=== PATIENT | male | born 1955 | race Two or more races ===

== ENCOUNTER 2019-05-09 12:20 | Emergency (ER) | payer BC, OTHER ==
--- NOTE | 2019-05-09 13:24 | EDM.PDOC ---
ED HPI GENERAL MEDICAL PROBLEM - General Chief Complaint: Respiratory Problem Stated Complaint: FEVER, COUGH Time Seen by Provider: 05/09/19 12:20 Source of Information: Reports: Patient History Limitations: Reports: No Limitations - History of Present Illness INITIAL COMMENTS - FREE TEXT/NARRATIVE: brought in by daughter does not speak divehi states he has had cough and low grade fever for 2 days cough is productive of yellow phlegm, no chest pain , no sob pt is a smoker Onset: Gradual Onset Date: 05/07/19 Duration: Day(s): (2) Location: Reports: Chest Quality: Reports: Burning Severity: Moderate Worsens with: Reports: Breathing Context: Reports: Sick Contact Associated Symptoms: Reports: Cough, Fever/Chills, Loss of Appetite, Malaise genralized body aches Pain Score (Numeric/FACES): 1 - Related Data Allergies Allergy/AdvReac Type Severity Reaction Status Date / Time No Known Allergies Allergy Verified 05/09/19 12:21 Home Meds: Home Meds Lisinopril/Hydrochlorothiazide [Zestoretic 10-12.5 mg Tablet] 1 ea PO DAILY [History] atorvaSTATin [Lipitor] 20 mg PO DAILY 03/29/15 [History] Amoxicillin/Potassium Clav [Augmentin 875-125 Tablet] 1 each PO BID #20 tablet 05/09/19 [Rx] Benzonatate [Tessalon Perle] 100 mg PO TID #30 capsule 05/09/19 [Rx] guaiFENesin [Mucinex] 600 mg PO BID #20 tab.er.12h 05/09/19 [Rx] sitaGLIPtin Phos/Metformin HCl [Janumet 50-1,000 MG] 1 tab PO BID 05/09/19 [ History] Past Medical History HEENT History: Reports: Other (See Below) Other HEENT History: BILATERAL [place] Cardiovascular History: Reports: High Cholesterol, Hypertension Gastrointestinal History: Reports: GERD Endocrine/Metabolic History: Reports: Diabetes, Type II Social & Family History - Family History Family Medical History: Noncontributory - Tobacco Use Smoking Status *Q: Current Every Day Smoker Years of Tobacco use: 1 Packs/Tins Daily: 0.2 Second Hand Smoke Exposure: Yes - Caffeine Use Caffeine Use: Reports: Coffee - Alcohol Use Number of Drinks Per Day: 4 - Recreational Drug Use Recreational Drug Use: No ED ROS GENERAL - Review of Systems Review Of Systems: Comprehensive ROS is negative, except as noted in HPI. Constitutional: Reports: Fever, Chills, Malaise, Weakness HEENT: Reports: Rhinitis Respiratory: Reports: Cough, Sputum. Denies: Shortness of Breath, Wheezing, Hemoptysis Cardiovascular: Denies: Chest Pain Endocrine: Reports: No Symptoms GI/Abdominal: Reports: No Symptoms Musculoskeletal: Reports: No Symptoms Skin: Reports: No Symptoms Neurological: Reports: No Symptoms Immunologic: Reports: No Symptoms ED EXAM, GENERAL - Physical Exam Exam: See Below Exam Limited By: No Limitations General Appearance: Alert, WD/WN, No Apparent Distress Eye Exam: Bilateral Eye: EOMI Ears: Normal External Exam Ear Exam: Bilateral Ear: TM normal Nose: Normal Inspection Throat/Mouth: Normal Oropharynx Head: Atraumatic Neck: Supple, Non-Tender Respiratory/Chest: Lungs Clear, Normal Breath Sounds Extremities: Normal Inspection Neurological: Alert, Oriented Psychiatric: Normal Affect Course - Vital Signs Last Recorded V/S: Last Vital Signs Temp 37.7 C 05/09/19 14:00 Pulse 99 05/09/19 14:00 Resp 17 05/09/19 14:00 BP 140/82 05/09/19 14:00 Pulse Ox 94 L 05/09/19 14:00 - Orders/Labs/Meds Orders: Active Orders 24 hr Category Date Time Status CORONAVIRUS COVID-19, JEN Routine Lab 05/09/19 13:01 Received Meds: Medications Discontinued Medications Generic Name Dose Route Start Last Admin Trade Name Freq PRN Reason Stop Dose Admin Ondansetron HCl 4 mg 05/09/19 13:43 05/09/19 13:48 Zofran Odt PO 05/09/19 13:44 4 mg ONETIME ONE Administration - Re-Assessments/Exams Free Text/Narrative Re-Assessment/Exam: 05/09/19 19:23 negative screen for influenza noted screen for COVID ordered since he has fever , cough and has high risk for infection Departure - Departure Time of Disposition: 14:05 Disposition: Home, Self-Care 01 Condition: Good Clinical Impression: Acute bronchitis, URI (upper respiratory infection) - Discharge Information *PRESCRIPTION DRUG MONITORING PROGRAM REVIEWED*: Not Applicable *COPY OF PRESCRIPTION DRUG MONITORING REPORT IN PATIENT JACQUE: Not Applicable Prescriptions: Amoxicillin/Potassium Clav [Augmentin 875-125 Tablet] 1 each PO BID #20 tablet Benzonatate [Tessalon Perle] 100 mg PO TID #30 capsule guaiFENesin [Mucinex] 600 mg PO BID #20 tab.er.12h Instructions: Acute Bronchitis, Adult, [id number], Upper Respiratory Infection, Adult, [id number] Referrals: PCP,None [Primary Care Provider] - Forms: ED Department Discharge Additional Instructions: Increase fluid intake Take tylenol 500m 2 tabs 3times a day as needed for fever and pains Make appt to see your doctor if symptoms do not improve as expected Sepsis Event Note - Evaluation Sepsis Screening Result: Possible Sepsis Risk - Focused Exam Vital Signs: Vital Signs Temp Pulse Resp BP Pulse Ox 05/09/19 14:00 37.7 C 99 17 140/82 94 L 05/09/19 12:27 37.7 C 107 H 17 147/79 H 94 L Date Exam was Performed: 05/09/19 Time Exam was Performed: 19:18 - My Orders Last 24 Hours: My Active Orders 05/09/19 13:01 CORONAVIRUS COVID-19, JEN Routine - Assessment/Plan Last 24 Hours: My Active Orders 05/09/19 13:01 CORONAVIRUS COVID-19, JEN Routine
[2019-05-09] MEDS: Ondansetron 4 MG Tab.DIS PO ONE (13:48)
[2019-05-09 14:18] VITALS: BP 140/82; PULSE 99
== END 2019-05-09 14:05 | disposition home or self-care (01) ==
LOC: FB.ED 12:20
DX: J20.9 Acute bronchitis, unspecified (principal); J06.9 Acute upper respiratory infection, unspecified; F17.210 Nicotine dependence, cigarettes, uncomplicated; E11.9 Type 2 diabetes mellitus without complications; E78.00 Pure hypercholesterolemia, unspecified; I10 Essential (primary) hypertension; K21.9 Gastro-esophageal reflux disease without esophagitis; Z79.899 Other long term (current) drug therapy
CPT/HCPCS: 87635; 87804; 99283; A9270; U0002

== ENCOUNTER 2020-10-14 13:40 | Emergency (ER) | payer OTHER, BC ==
--- NOTE | 2020-10-14 14:05 | EDM.PDOC ---
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 There was no loss of consciousness. He did feel dazed. There was some bleeding from the occiput. He does have pain in his head that he reports is a "funny feeling" and also some pain that goes down into his posterior neck. He rates that pain as a 7-8/10. He has no vision problems. There is no arm or leg weakness. No nausea or vomiting. This occurred at approximately 1:40 PM today. He has no back pain. He has no arm or leg weakness or numbness. Since to the emergency department via private vehicle's family members. He speaks little Greek and the family members serve as program development manager. 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 There are no other associated signs or symptoms. There are no other modifying factors. Onset: Today (1:40 PM) Duration: Constant Location: Reports: Head, Neck Quality: Reports: Other ("Funny feeling") Severity: Moderate Improves with: Reports: Rest Worsens with: Reports: Other (Palpation), Movement Context: Reports: Trauma Associated Symptoms: Reports: No Other Symptoms Treatments PRENATAL TEACHER: Reports: Other (see below) (Nothing.) Headache Pain Score (Numeric/FACES): 4 - Related Data Allergies Allergy/AdvReac Type Severity Reaction Status Date / Time No Known Allergies Allergy Verified 10/14/20 14:04 Home Meds: Home Meds Lisinopril/Hydrochlorothiazide [Zestoretic 10-12.5 mg Tablet] 1 ea PO DAILY 03/29/15 [History] atorvaSTATin [Lipitor] 20 mg PO DAILY 03/29/15 [History] Amoxicillin/Potassium Clav [Augmentin 875-125 Tablet] 1 each PO BID #20 tablet 05/09/19 [Rx] Benzonatate [Tessalon Perle] 100 mg PO TID #30 capsule 05/09/19 [Rx] guaiFENesin [Mucinex] 600 mg PO BID #20 tab.er.12h 05/09/19 [Rx] sitaGLIPtin Phos/Metformin HCl [Janumet 50-1,000 MG] 1 tab PO BID 05/09/19 [History] Past Medical History HEENT History: Reports: Other (See Below) Other HEENT History: BILATERAL chalazion Cardiovascular History: Reports: High Cholesterol, Hypertension Gastrointestinal History: Reports: GERD Endocrine/Metabolic History: Reports: Diabetes, Type II - Past Surgical History HEENT Surgical History: Reports: Oral Surgery (Dental extractions.) Social & Family History - Tobacco Use Tobacco Use Status *Q: Current Every Day Tobacco User - Caffeine Use Caffeine Use: Reports: Coffee - Alcohol Use Alcohol Use History: Yes Alcohol Use Frequency: Weekly (Usually only on weekends.) - Living Situation & Occupation Occupation: Employed ED ROS GENERAL - Review of Systems Review Of Systems: See Below Constitutional: Denies: Fever, Chills HEENT: Denies: Throat Pain, Vision Change Respiratory: Denies: Shortness of Breath, Cough Cardiovascular: Denies: Chest Pain, Palpitations GI/Abdominal: Denies: Nausea, Vomiting Musculoskeletal: Reports: Neck Pain. Denies: Arm Pain, Leg Pain Skin: Reports: Wound. Denies: Rash Neurological: Reports: Headache. Denies: Confusion, Dizziness Hematologic/Lymphatic: Denies: Easy Bleeding, Easy Bruising Immunologic: Reports: Other (Greater than 10 years since his last tetanus immunization.) ED EXAM, HEAD INJURY - Physical Exam Exam: See Below Exam Limited By: No Limitations General Appearance: Alert, WD/WN, No Apparent Distress Head: Scalp Abrasions, Scalp Hematoma Nexus Criteria: Posterior, Midline Cervical Tenderness Eyes: Bilateral Eye: EOMI, Normal Inspection, PERRL Ears: Normal External Exam, Hearing Grossly Normal Nose: Normal Inspection, Normal Mucousa, No Blood Throat/Mouth: Normal Inspection, Normal Lips, Normal Oropharynx, Normal Voice, No Airway Compromise Neck: Normal Alignment, Tender Midline Respiratory: No Respiratory Distress, Lungs Clear, Normal Breath Sounds, No Accessory Muscle Use, Chest Non-Tender Cardiovascular: Normal Peripheral Pulses, Regular Rate, Rhythm, No Murmur GI/Abdominal Exam: Normal Bowel Sounds, Soft, Non-Tender, No Mass Back Exam: Normal Inspection, Full Range of Motion Extremities: Normal Inspection, Normal Range of Motion, Non-Tender, No Pedal Edema, Normal Capillary Refill Neurologic: shirt turner II-XII nml As Tested, No Motor/Sensory Deficits, Alert, Normal Mood/Affect, Oriented x 3 Skin: Normal Color, Warm/Dry, Other (Ecchymosis and swelling with abrasion over the occiput.) - [place] Coma Score Best Eye Response (Ruth): (4) Open Spontaneously Best Verbal Response ([place]): (5) Oriented Best Motor Response ([place]): (6) Obeys Commands Ruth Total: 15 Course - Vital Signs Last Recorded V/S: Last Vital Signs Temp 36.9 C 10/14/20 13:50 Pulse 86 10/14/20 13:50 Resp 18 10/14/20 13:50 BP 115/72 10/14/20 13:50 Pulse Ox 97 10/14/20 13:50 - Orders/Labs/Meds Orders: Active Orders 24 hr Category Date Time Status Vaccines to be Administered [RC] PER UNIT ROUTINE Care 10/14/20 14:19 Active Meds: Medications Discontinued Medications Generic Name Dose Route Start Last Admin Trade Name Jaeq PRN Reason Stop Dose Admin Diphtheria/Tetanus/Acell Pertussis 0.5 ml 10/14/20 14:19 10/14/20 14:29 Diphtheria,Pertussis(Acell),Tetanus Vaccine 0.5 Ml Syringe IM 10/14/20 14:20 0.5 ml .ONCE ONE Administration - Radiology Interpretation Free Text/Narrative:: CT scan of the head shows no acute traumatic injury. There was no bleeding and no fractures. 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 This was per Dr. Yun. CT scan of the cervical spine shows DJD but no fracture and no malalignment. This was per Dr. Yun. - Re-Assessments/Exams Free Text/Narrative Re-Assessment/Exam: 10/14/20 15:45: The patient remains awake and alert. CT scans of his head and neck showed no evidence of bleeding or fracture. There was fairly significant DJD in his neck there was also calcifications of the carotids in the vertebral arteries and there was evidence of an old right subcortical stroke. These are all incidental findings. He is under regard to that now. He has no arm or leg weakness. The wound is an abrasion and needs no suture repair or staple repair. He was given a Tdap Immunization today to bring his tetanus immunization status up-to-date. He can take ibuprofen and Tylenol for his pain. I did recommend that he follow-up with his primary provider as he may need additional outpatient testing or additional medications for the incidental findings or found today. He will be cleared to go back to work tomorrow. Departure - Departure Time of Disposition: 16:00 Disposition: Home, Self-Care 01 Condition: Good Clinical Impression: Head contusion Qualifiers: Encounter type: initial encounter Contusion of head detail: scalp Qualified Code(s): S00.03XA - Contusion of scalp, initial encounter Scalp abrasion Qualifiers: Encounter type: initial encounter Qualified Code(s): S00.01XA - Abrasion of scalp, initial encounter Fall from standing Qualifiers: Encounter type: initial encounter Qualified Code(s): W19.XXXA - Unspecified fall, initial encounter - Discharge Information Instructions: Contusion, [id number], Head Injury, Adult, [id number] Additional Instructions: The CAT scans of your head and neck showed no fractures and no bleeding. You do have calcium buildup within the arteries going to your brain and you also have evidence of an old stroke on the right side of your brain. These problems did not occur today and have been present for quite a long time. They are something that would require follow-up with your primary doctor. In regard to your head injury today, it appears to be a mild headache injury and you will be able to go back to work beginning tomorrow if needed. He should clean the wound on her scalp with mild soap and water and apply bacitracin to the area until it heals over. You can take Tylenol and ibuprofen as needed for pain. Back to the emergency department for severe headache, unrelenting vomiting, arm or leg weakness, severe weakness or any other concerning signs or symptoms. Sepsis Event Note (ED) - Focused Exam Vital Signs: Vital Signs Temp Pulse Resp BP Pulse Ox 10/14/20 13:50 36.9 C 86 18 115/72 97 - My Orders Last 24 Hours: My Active Orders 10/14/20 14:19 Vaccines to be Administered [RC] PER UNIT ROUTINE - Assessment/Plan Last 24 Hours: My Active Orders 10/14/20 14:19 Vaccines to be Administered [RC] PER UNIT ROUTINE
[2020-10-14] MEDS ORDERED: Diphtheria,Pertussis(Acell),Tetanus Vaccine 0.5 ML Syringe IM ONE (14:19)
[2020-10-14 15:02] VITALS: BP 115/72; PULSE 86
--- NOTE | 2020-10-14 15:29 | CT ---
INDICATION: Fell with head injury hitting back of head, no loss of consciousness. CT HEAD WITHOUT CONTRAST: Spiral 3.75 mm axial sections were obtained through the brain without contrast with axial, sagittal and coronal reconstructions 10/14/20 - no comparisons. Total exam DLP [id number] milligray-cm. A moderate size retention cyst is noted at the left maxillary antrum. There is minimal thickening of the linings of the maxillary antra and a few ethmoidal air cells as well as the frontal air cells, right greater than left. The mastoid air cells appear to be well aerated. No cranial fracture site was noted. Prominent internal carotid and left vertebral calcifications are noted compatible with cerebrovascular disease. The orbits appear to be intact. No shift of midline structures was noted. The ventricles appear to be somewhat prominent suggesting central atrophy with the right lateral ventricle more prominent than the left. This may be on the basis of loss of volume - infarct on the right. There is a fairly large area of decreased density periventricular in the right frontoparietal area with relatively minimal changes periventricular on the left. Findings are felt to be compatible with subcortical infarcts likely on the basis of microvascular disease. No definite acute intracranial abnormality was identified - no bleeding site or hematoma was seen. IMPRESSION: 1. No acute intracranial abnormality suggested. 2. Central atrophy with asymmetry - more prominent atrophy suggested on the right. 3. White matter changes mostly on the right at the frontoparietal area compatible with microvascular disease type changes - subcortical infarct. 4. Cerebrovascular disease with arterial calcifications in the left vertebral and internal carotid arteries. 5. Findings in the frontal sinuses and ethmoidal sinuses suggesting chronic sinusitis. Report was called to Dr. Ortez at 1517 hours 10/14/20. [facility]
--- NOTE | 2020-10-14 15:38 | CT ---
INDICATION: Fall with head and neck injury. CT CERVICAL SPINE WITHOUT CONTRAST: Spiral 2.5 mm axial sections were obtained through the cervical spine with sagittal and coronal reconstructions 10/14/20 - no comparisons. The atlas and the axis including the odontoid appear to be intact. There are mild to moderate hypertrophic degenerative changes at the odonto-atlantian joint. Hypertrophic changes off vertebral bodies are noted at C5-C6, C6-C7 and C7-T1 with narrowing of disc spaces at C6-C7 and C7-T1. Subchondral cystic changes and some sclerosis are noted at the C6-C7 and C7-T1 levels. Relatively mild narrowing of neural foramina is noted due to the hypertrophic changes off vertebral bodies. Uncinate joint degenerative changes are noted with partial fusion at the left-sided C2-C3 uncinate joint. Hypertrophic degenerative changes are mild at C3-C4 and mild at C5-C6 on the righ,t more severe at C6-C7 and C7-T1 bilaterally. Vertebral elements were fairly well aligned with hypertrophic changes at lateral masses at several levels. However, vertebral body heights were fairly well maintained except for slight loss of vertebral body volume at C6 anteriorly which likely is chronic. A definite fracture or dislocation was not identified. Prevertebral space and bone density appear to be normal. Fairly extensive probable fibrotic changes at the noted at the upper lung bhatia - apices. This should be correlated clinically. Active disease is felt to be less likely but is difficult to exclude especially on the left where visualization is only partial and pleuroparenchymal changes are more prominent. Prevertebral spaces appeared to be normal. IMPRESSION: 1. No definite acute fracture or dislocation. 2. Osteoarthritis with degenerative disc disease. Relatively mild narrowing of neural foramina due to hypertrophic spurring posterolaterally is noted at two levels. Report was called to Dr. Ortez at 1517 hours 10/14/20. [facility]
== END 2020-10-14 16:15 | disposition home or self-care (01) ==
LOC: FB.ED 13:40
DX: S00.03XA Contusion of scalp, initial encounter (principal); E78.00 Pure hypercholesterolemia, unspecified; I10 Essential (primary) hypertension; E11.9 Type 2 diabetes mellitus without complications; Z79.899 Other long term (current) drug therapy; Z72.0 Tobacco use; Z23 Encounter for immunization; W18.09XA Striking against other object with subsequent fall, initial encounter
CPT/HCPCS: 70450; 72125; 90471; 90715; 99283-25

== ENCOUNTER → 2023-09-20 | Day surgery (SDC) | payer BC ==
[~2023-09-20] MED LIST: Lidocaine 2% 100 MG/5 ML Syringe IVPUSH ONE; Propofol 200 MG/20 ML SDV IV ONE; Sodium Chloride 0.9% 10 ML Syringe FLUSH PRN
[2023-09-20] MEDS: Lactated Ringers 1,000 ML IV SCH (07:53)
[2023-09-20] MEDS: Simethicone Drops 40 MG/0.6 ML 30 ML Bottle ONE (08:06)
[2023-09-20 09:07] VITALS: PULSE 62
[2023-09-20 09:24] VITALS: BP 133/72
== END ==
LOC: FB.SDS 06:51
PROVIDERS: ATTEND Surgery
DX: Z12.11 Encounter for screening for malignant neoplasm of colon (principal); L72.0 Epidermal cyst; E11.9 Type 2 diabetes mellitus without complications; I10 Essential (primary) hypertension; F17.210 Nicotine dependence, cigarettes, uncomplicated; Z79.4 Long term (current) use of insulin; Z79.82 Long term (current) use of aspirin; Z79.899 Other long term (current) drug therapy
CPT/HCPCS: 45378; 82947; A9270; J2704; J7120; 00812

== ENCOUNTER 2024-07-08 08:05 | Day surgery (SDC) | payer BC ==
[~2024-07-08 08:05] MED LIST changes: -Lidocaine 2% 100 MG/5 ML Syringe IVPUSH ONE; -Propofol 200 MG/20 ML SDV IV ONE
[2024-07-08] MEDS ORDERED: Propofol 200 MG/20 ML SDV IV ONE (08:06)
[2024-07-08] MEDS ORDERED: Lidocaine 2% 100 MG/5 ML Syringe IVPUSH ONE (08:06)
[2024-07-08] MEDS ORDERED: Midazolam 1 MG/ML 2 ML SDV IV ONE (08:06)
[2024-07-08 08:27] VITALS: BP 149/79; PULSE 79
[2024-07-08] MEDS: Lactated Ringers 1,000 ML IV SCH (08:35)
[2024-07-08] MEDS: Simethicone Drops 40 MG/0.6 ML 30 ML Bottle ONE (09:07)
== END 2024-07-08 10:37 | disposition home or self-care (01) ==
LOC: FB.SDS 08:05
PROVIDERS: ATTEND Surgery
DX: K29.50 Unspecified chronic gastritis without bleeding (principal); E11.9 Type 2 diabetes mellitus without complications; Z79.84 Long term (current) use of oral hypoglycemic drugs; Z79.899 Other long term (current) drug therapy; Z87.891 Personal history of nicotine dependence
CPT/HCPCS: 00731; 43239; 82947; 88305; 88342; A9270; J2250; J2704; J7120

== ENCOUNTER 2025-01-03 16:22 | Emergency (ER) | payer BC ==
[2025-01-03 18:13] VITALS: BP 118/74; PULSE 82
== END 2025-01-03 17:10 | disposition home or self-care (01) ==
LOC: FB.ED 16:22
DX: R13.19 Other dysphagia (principal); F17.210 Nicotine dependence, cigarettes, uncomplicated; I10 Essential (primary) hypertension; E11.9 Type 2 diabetes mellitus without complications; Z79.899 Other long term (current) drug therapy; Z79.84 Long term (current) use of oral hypoglycemic drugs
CPT/HCPCS: 93005; 99284